=== PATIENT | male | born 1945 | race Caucasian/White ===

== ENCOUNTER 2017-01-13 09:33 | Inpatient (IN) | payer BC ==
[~2017-01-13 09:33] MED LIST: ACETAMINOPHEN 1,000 MG/100 ML BTL IV ONE; CELECOXIB 100 MG CAPSULE PO ONE; FAMOTIDINE 20MG TABLET PO ONE; MECLIZINE 25 MG TABLET PO ONE; METOCLOPRAMIDE 10 MG TABLET PO ONE; VANCOMYCIN HCL 1,000 MG in 0.9 % SODIUM CHLORIDE 250ML 250 ML IVPB ONE
[2017-01-13] MEDS ORDERED: VANCOMYCIN HCL 1 GM VIAL IVPB ONE (09:37)
[2017-01-13] MEDS ORDERED: BUPIVACAINE 0.5% W/EPI MPF 30 ML VIAL IVP ONE (09:37)
[2017-01-13] MEDS ORDERED: TRANEXAMIC ACID 1,000 MG/10 ML ML IV ONE (09:37)
[2017-01-13] MEDS ORDERED: BUPIVACAINE LIPOSOME 266MG/20ML VIAL IV ONE (09:37)
[2017-01-13 11:02] LABS: ABO GROUP B; ANTIBODY SCREEN NEGATIVE (NEGATIVE); RH TYPE POSITIVE
[2017-01-13] MEDS ORDERED: ONDANSETRON HCL IV 4 MG/2 ML VIAL IVP PRN (13:00)
[2017-01-13] MEDS ORDERED: MAGNESIUM HYDROXIDE 30 ML UDC PO PRN (13:00)
[2017-01-13] MEDS ORDERED: BISACODYL 10 MG SUPP RC PRN (13:00)
[2017-01-13] MEDS ORDERED: ACETAMINOPHEN 325 MG TAB PO PRN (13:00)
[2017-01-13] MEDS ORDERED: HYDROMORPHONE HCL 1MG/ML **SYRINGE IM PRN (13:00)
[2017-01-13] MEDS ORDERED: MORPHINE SULFATE 5 MG/ML PFS IVP PRN ×4 (13:00)
[2017-01-13] MEDS ORDERED: KETOROLAC 30 MG/ML VIAL IVP PRN ×2 (13:00)
[2017-01-13] MEDS ORDERED: PROMETHAZINE HCL 12.5 MG in 0.9 % SODIUM CHLORIDE 100ML 50 ML IVPB PRN (13:00)
[2017-01-13] MEDS ORDERED: ZOLPIDEM TARTRATE 5 MG TABLET PO PRN (13:00)
[2017-01-13] MEDS ORDERED: HYDROCODONE/APAP 7.5/325MG TABLET PO PRN ×2 (13:00)
[2017-01-13] MEDS ORDERED: ACETAMINOPHEN W/ CODEINE 300MG/60MG TABLET PO PRN ×2 (13:00)
[2017-01-13] MEDS ORDERED: ACETAMINOPHEN W/ CODEINE 300MG/30MG TABLET PO PRN ×2 (13:00)
[2017-01-13] MEDS ORDERED: HYDROMORPHONE HCL 2 MG/ML VIAL IM PRN (13:00)
[2017-01-13] MEDS ORDERED: METOCLOPRAMIDE HCL 10 MG/2 ML VIAL IVP PRN (13:00)
[2017-01-13] MEDS ORDERED: HYDROCODONE/APAP 5/325MG TABLET PO PRN ×2 (13:00)
[2017-01-13] MEDS ORDERED: NALOXONE 0.4 MG/1 ML VIAL IVP PRN (13:00)
[2017-01-13] MEDS ORDERED: DIPHENHYDRAMINE HCL 25 MG CAPSULE PO PRN (13:00)
[2017-01-13] MEDS ORDERED: TRAMADOL HCL 50 MG TABLET PO PRN ×2 (13:00)
[2017-01-13] MEDS ORDERED: AL HYDROX/MAG HYDROX 30ML UD PO PRN (13:00)
[2017-01-13] MEDS ORDERED: DEXTROSE 5 % AND 0.9 % NACL 1,000 ML IV PRN (15:00)
[2017-01-13] MEDS ORDERED: DIPHENHYDRAMINE HCL IV 50 MG/ML VIAL IVP ONE (15:53)
[2017-01-13] MEDS ORDERED: LIDOCAINE 2% MDV (20MG/ML) 20ML VIAL IV ONE (15:53)
[2017-01-13] MEDS ORDERED: FENTANYL PF 100MCG/2ML VIAL IV ONE (15:53)
[2017-01-13] MEDS ORDERED: PROPOFOL 10 MG/ML VIAL IV ONE (15:53)
[2017-01-13] MEDS ORDERED: HYDROMORPHONE HCL 2 MG/ML VIAL IV ONE (15:53)
[2017-01-13] MEDS ORDERED: KETOROLAC 30 MG/ML VIAL IVP ONE (15:53)
[2017-01-13] MEDS ORDERED: MIDAZOLAM HCL 2MG/2ML VIAL IV ONE (15:53)
[2017-01-13] MEDS ORDERED: FLU VAC QS 2017-18 (INPT, 6MO+) 60MCG/0.5ML IM ONE (17:21)
[2017-01-13] MEDS ORDERED: GLIMEPIRIDE 4 MG PO SCH (19:00)
[2017-01-13] MEDS ORDERED: METOPROLOL 50 MG PO SCH (22:00)
[2017-01-13] MEDS: FERROUS SULFATE 325 MG TAB PO SCH (22:19)
[2017-01-13] MEDS: DOCUSATE SODIUM 100 MG CAPSULE PO SCH (22:19)
[2017-01-13] MEDS: JANUMET PO SCH (22:19)
[2017-01-14] MEDS: VANCOMYCIN HCL 1,000 MG in 0.9 % SODIUM CHLORIDE 250ML 250 ML IVPB SCH ×2 (00:13→11:05)
[2017-01-14 06:39] LABS: HEMATOCRIT 39.3 % (42.0-52.0); HEMOGLOBIN 13.6 gm/dl (14.0-18.0)
--- NOTE | 2017-01-14 09:47 | Rehab Evaluation ---
Patient Information - Patient Information Diagnosis: Right knee OA Ordered Treatment: PT Evaluate and Treat Status: Initial Evaluation Surgery: Yes (TKA right ) Date of Surgery: 01/13/17 Past Medical/Surgical Hx: PAST MEDICAL/SURGICAL HISTORY Past Surgical History back sx testicle sx ulcer-portion of stomach 1/3 removed 1972; colonoscopies x3; cysto with removal of kidney stone (stent) skin CA removed from left forehead. PMH - Respiratory Hx Respiratory Disorders Yes Hx Chronic Obstructive Yes: "slight" Pulmonary Disease (COPD) Hx Pneumonia Yes: x2 Hx of URI Yes: had sinus infection with URI-took ABX- almost 100% over it Hx of SOB Yes: exertional Comment: sinus drainage in am PMH - Cardiovascular Hx Cardiovascular Disorders Yes Hx Edema Yes: slight in both legs/ankles Hx Hypertension Yes: med good control Hx Vascular Disease Yes: "leaky valve in rt leg" -DX 2 yrs ago"I have a cool rt foot" Exercise Tolerance Fair Comment: hyperlipidemia PMH - Neuro Hx Neurological Disorders Yes Hx Dementia Yes: a little Hx Neuropathy Yes: feet & hands Hx Weakness Yes: both knees PMH - GI Hx Gastrointestinal Disorders Yes Hx Ulcer Yes: 1/3 stomach removed Hx Weight Loss/Weight Gain Yes: loss of 20# over last yr PMH - Hx Genitourinary Disorders Yes Hx Kidney Stones Yes Comment: stomach surgery 1972 PMH - Endocrine Hx Endocrine Disorders Yes Hx Diabetes Yes Hx Thyroid Disease No Hx of NIDDM Yes Comment: does accucheck 2xday-this AM was 153. gets low at nite(60). 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 Removed cryocuff and bandage had leaked through with blood so notified nursing then checked patient's ROM and doing quite well with that and very little swelling in knee. Nursing removed IV and patient able to move supine to sit to stand with only CGA and walker. Able to stand actually without walker also as putting very little pressure through UE for weightbearing. Ambulated into dillon about 50 feet then able to descend three steps with walker folded and rail, pivoted around and able to ascend three steps with proper technique and walker and rail again for support. Walked back to room and had patient use bathroom: able to urinate standing without difficulty, washed hands easily then back to sit on edge of bed. Did not go through all exercises yet as nursing waiting to change bandages on knee and put new RELL hose on patient. Left tray table and call light close.) Subjective Information - Subjective Information Per Patient Objective Data - Pain Pain Present: Yes Pain Intensity: 2 - Mental Status Patient Orientation: Oriented x3 - Visual Perception Appears within normal limits for therapeutic activities - ROM Within normal limits (except right knee 0 to 60 degrees today.) - Strength/Tone Within normal limits (except quads probably 3+/5 yet secondary to surgery) - Coordination Appears within normal limits for therapeutic activities - Bed Mobility Independent - Transfers Independent - Balance Balance Sitting: Good Balance Standing: Good - Sensation Intact - Gait Detail (Able to walker with FWW without any difficulty and barely puts any pressure on walker with UES.) - Special Tests No Therapy Assessment - Therapy Assessment Detail (Patient doing extremely well and should progress well for rehab.) Patient Education - Patient Education Teaching Topic: Equipment Use, Exercise/Activity Response: Return Demonstration Teaching Method: Discussion, Demonstration Teaching Recipient: Patient Barriers To Learning: None Problem List - Problem List Physical Therapy Problem List: Detail (Some issues with mobility, gait and function yet especially for community distances of gait.) Goals - Goals Physical Therapy Goals: Independent with gait, mobility and functional activities safe to go home. Prognosis - Prognosis Good (Doing extremely well already and should be able to go home this afternoon or evening.) Plan - Plan Physical Therapy Plan: Continue PT today another time then has an appointment scheduled for tomorrow am if needs it. Increase mobility, review exercises and make sure ready for discharge home.
[2017-01-14] MEDS ORDERED: PATIENT OWN MED: GABAPENTIN 300 MG PO SCH (10:00)
[2017-01-14] MEDS ORDERED: LOSARTAN HCTZ PO SCH (10:00)
[2017-01-14] MEDS ORDERED: PATIENT OWN MED: LOVASTATIN 40 MG PO SCH (10:00)
[2017-01-14] MEDS ORDERED: RIVAROXABAN 10 MG TABLET PO SCH (10:00)
[2017-01-14] MEDS ORDERED: CELECOXIB 100 MG CAPSULE PO SCH (10:00)
[2017-01-14] MEDS ORDERED: VANCOMYCIN HCL 1 GM VIAL IVPB ONE (10:34)
[2017-01-14] MEDS ORDERED: TRANEXAMIC ACID 1,000 MG/10 ML ML IV ONE (10:34)
[2017-01-14] MEDS: DOCUSATE SODIUM 100 MG CAPSULE PO SCH (10:41)
[2017-01-14] MEDS: FERROUS SULFATE 325 MG TAB PO SCH (10:41)
[2017-01-14] MEDS: JANUMET PO SCH (10:44)
--- NOTE | 2017-01-14 14:08 | Physical Therapy Tx Note ---
Physical Therapy Tx Note - Treatment Note Tolerated: Good (Patient still doing very well with pain control and up several times today to bathroom without increased pain. Able to walk with FWW with good technique and tolerance.) Total Time Spent With Patient: 30 Physical Therapy Tx Note: Detail (Patient seen bedside, sitting up in bed with right leg dangling without pain. Removed cryocuff and compressive stocking then sit to stand with FWW, patient independent. Ambulated with FWW about 100 feet in dillon then back to bed. Climbed in bed independently then worked on exercises : heel slides, SLR, SAQ, ankle pumps and isometrics for quads and gluts, hamstrings. Re-attached cryocuff and answered questions for home.) Physical Therapy Problem List: Detail (Some issues with mobility, gait and function yet especially for community distances of gait.) Physical Therapy Goals: Independent with gait, mobility and functional activities safe to go home. Prognosis: Good (Patient doing very well and safe to go home as long as family present and uses walker: a little bit wobbly without walker yet.) Physical Therapy Plan: Continue PT today another time then has an appointment scheduled for tomorrow am if needs it. Increase mobility, review exercises and make sure ready for discharge home.
--- NOTE | 2017-01-14 14:09 | Rehab Evaluation ---
Patient Information - Patient Information Diagnosis: Right knee OA Ordered Treatment: OT Evaluate and Treat Status: Initial Evaluation Surgery: Yes (TKA right ) Date of Surgery: 01/13/17 Past Medical/Surgical Hx: PAST MEDICAL/SURGICAL HISTORY Past Surgical History back sx testicle sx ulcer-portion of stomach 1/3 removed 1972; colonoscopies x3; cysto with removal of kidney stone (stent) skin CA removed from left forehead. PMH - Respiratory Hx Respiratory Disorders Yes Hx Chronic Obstructive Yes: "slight" Pulmonary Disease (COPD) Hx Pneumonia Yes: x2 Hx of URI Yes: had sinus infection with URI-took ABX- almost 100% over it Hx of SOB Yes: exertional Comment: sinus drainage in am PMH - Cardiovascular Hx Cardiovascular Disorders Yes Hx Edema Yes: slight in both legs/ankles Hx Hypertension Yes: med good control Hx Vascular Disease Yes: "leaky valve in rt leg" -DX 2 yrs ago"I have a cool rt foot" Exercise Tolerance Fair Comment: hyperlipidemia PMH - Neuro Hx Neurological Disorders Yes Hx Dementia Yes: a little Hx Neuropathy Yes: feet & hands Hx Weakness Yes: both knees PMH - GI Hx Gastrointestinal Disorders Yes Hx Ulcer Yes: 1/3 stomach removed Hx Weight Loss/Weight Gain Yes: loss of 20# over last yr PMH - Hx Genitourinary Disorders Yes Hx Kidney Stones Yes Comment: stomach surgery 1972 PMH - Endocrine Hx Endocrine Disorders Yes Hx Diabetes Yes Hx Thyroid Disease No Hx of NIDDM Yes Comment: does accucheck 2xday-this AM was 153. gets low at nite(60). 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 He has 3-4 steps at the entrance with handrailing, a tub/shower combination as well as a walk in shower with grab bar and shower seat. He has an elevated toilet seat with grab bar. He is responsible for yard work, his family is responsible for home mgmt, meal prep and laundry. He has a 2 wheeled walker, scooter, cane and crutches.) Social History: Detail (Supportive family) Precautions: [place], Fall - Time With Patient Total Time Spent With Patient (Min): 30 Treatment Procedures: Detail (OT eval low complexity) Subjective Information - Subjective Information Per Patient Objective Data - Pain Pain Present: No - Mental Status Patient Orientation: Oriented x3 - Visual Perception Appears within normal limits for therapeutic activities - ROM Within normal limits (Aj UE AROM WNL) - Strength/Tone Within normal limits (Aj UE strength WNL) - Coordination Appears within normal limits for therapeutic activities - Bed Mobility Independent (Ind with supine to/from sit) - Transfers Independent - Balance Balance Sitting: Good Balance Standing: Good - Sensation Intact - ADL's/IADL's Detail (Pt educated re: modified dressing technique and he was able to demonstrate Ind with donning sweatpants, t-shirt and slippers. Reviewed shower safety and pt verbalized understanding.) Therapy Assessment - Therapy Assessment Detail (Pt is safe and Ind with modified dressing techniques.) Problem List - Problem List Physical Therapy Problem List: Detail (Some issues with mobility, gait and function yet especially for community distances of gait.) Occupational Therapy Problem List: Detail (No current OT problems identified.) Goals - Goals Physical Therapy Goals: Independent with gait, mobility and functional activities safe to go home. Occupational Therapy Goals: No current OT goals identified. Prognosis - Prognosis Good Plan - Plan Physical Therapy Plan: Continue PT today another time then has an appointment scheduled for tomorrow am if needs it. Increase mobility, review exercises and make sure ready for discharge home. Occupational Therapy Plan: No further IP OT needs identified. Thank you for this referral.
--- NOTE | 2017-01-15 13:30 | Operative Note ---
DATE OF SURGERY: 01/13/2017 PREOPERATIVE DIAGNOSIS: End-stage right knee arthrosis. POSTOPERATIVE DIAGNOSIS: End-stage right knee arthrosis. OPERATION: Right total knee arthroplasty. Surgeon: Reinaldo Max MD Anesthesia: Spinal. COMPLICATIONS: None. Anesthesia Provider: EDWARD Long Blood Loss: Minimal. TOURNIQUET TIME: 75 minutes. OPERATIVE FINDINGS: [id number] medial compartment arthrosis. COMPONENTS PLACED: Two g vancomycin-cemented [employer] Journey II Oxinium size 7 femoral component, size 7 tibial baseplate and 9 mm thick tibial poly insert and 35 mm cemented patellar component. INDICATIONS FOR OPERATION: This is a 71-year-old male who has had persistent pain and dysfunction in his knee for several years. Failed nonoperative treatment. Scheduled for a knee replacement. I explained the risks and benefits of surgery in detail for the diagnosis and procedures, including, but not limited to infection, nerve injury, vessel injury, persistent pain symptoms, tingling in the knee, periprosthetic fracture, need for resection arthroplasty should components get infected or loosen, injury to vessels or blood clot, and need for anticoagulation to prevent blood clots, risks associated with the medication, and all of his questions were clearly answered, course was outlined and he agreed to proceed. PROCEDURE: The patient brought to the OR, placed in the supine position, prepped for surgery. After this, spinal anesthesia was induced. The right lower extremity and knee prepped and draped in sterile fashion. Prepped the right knee again with ChloraPrep and draped and intraoperative timeout was performed. Next, the leg was exsanguinated with Esmarch. The knee was flexed and tourniquet inflated to 250 mmHg pressure. Next, skin and subcutaneous tissues dissected down, incised the capsule medially along the medial border of the patella to the tibial tubercle. Incised the vastus medialis in line with its fibers, in a mid vastus approach. Partially resected the right patellar fat pad, and elevated the capsule subperiosteal medially and flexed. The knee had [id number] medial compartment arthrosis. Next, drilled an intercondylar drill hole, inserted intramedullary guide veronica, 6 degree cutting block, aligned distal femoral condyles and pinned in the +2 mm position and cut the distal femoral condyles. Next, we placed a sizing jig on the distal femoral condyle, sized to be a size 7. Through the previously-placed pin holes, placed the size 7 cutting jig dialed in the anterior cut so it would come out flush without notching, and we cut the anterior cut, and it was a good cut. Next, we placed a size cutting jig, then we crosspinned and completed fixation, cut the remainder of the chamfer cuts in usual fashion. Next, we placed the size 7 trial component, centered it, pinned it, removed osteophytes off the periphery, and then inserted the femoral resection Angela and reamed out with box osteotome, cruciate bone block. Next, attention was turned to the tibia. We seated the spikes with the external alignment jig in the tubercle groove, 2 fingerbreadths distally off the anterior tibial cortex. Then, referencing for a 7 mm cut off the higher lateral plateau there, we pinned the cutting jig provisionally and placed 2 anterior/posterior pins. Next, checked the cutting jig alignment using the drop veronica, again, centering on the tibial anatomic access. Once we had good alignment, then we crosspinned the cutting jig, completing its fixation and cut the tibia. Next, we removed osteophytes of posterior femoral condyles, checked flexion and extension gaps. Symmetric flexion and extension gaps were fine with a 9 mm thick poly insert and extension, and with alignment rods centered on the hip joint and ankle joint, there was normal anatomic valgus orientation. Next, we took the knee in flexion and sized the tibial baseplate to a size 7 and placed all trial components. Again, set the rotation tibial base plate again in extension using the alignment rods centered on the hip joint and ankle joint, marked electrocautery adams on the anterior tibial cortex off the laser adams on the tibial baseplate. Next, we measured patella to be 25 mm, set the cutting jig at 16 mm to allow for a 9 mm thick insert. We cut the patella. Chamfered off lateral patellar facet as much as possible, remeasured right on 16, sized to be 35 mm medialized as much as possible and drilled 3 peg holes. Placed trial patellar component and then did a trial range of motion and we mixed cement. Patella tracked nicely with full extension and flexion to 140-150 degrees, and again, symmetrical flexion-extension gaps were found. Next, we put the knee in flexion, seated the tibial baseplate off he previously-placed electrocautery adams, pinned it in place, then reamed out and keel punched a keel hole, placed a bone plug in femoral canal hole. Next, we irrigated copiously all bone inserts with pulse lavage and antibiotic solution. Brought in clean sheet, changed gloves, and then back on the tibial component first, removing excess cement, and then the femoral component and removed excess cement, then placed the trial tibial polyliner and held the knee in extension until the cement hardened, then clamped down the patellar component. Once the cement hardened, we put the knee in flexion, removed the trial tibial component, distracted with knee bone hook and sponge, thoroughly debrided all excess cement around the edges of the components. We irrigated copiously. We then injected several needle sticks of a mixture of 0.5% Marcaine with epi, 2 grams tranexamicacid, and Exparel throughout the posterior and medial capsule, medial and lateral periosteum, vastus medialis, and subcutaneous area around the periphery. Next, then inserted the real tibial poly insert and verified it was interlocked medially and laterally, Final range of motion and stability were the same. Irrigated copiously. Closed the vastus medialis and capsule with running #2 Quill, irrigated again, and closed the skin deep with 2-0 Vicryl and reapproximated the skin edges with zip line. We then placed sterile dressing and Aquacel. The patient tolerated the procedure well. No intraoperative complications. Sponge and needle counts correct. To recovery room stable. Will be discharged to the floor and likely discharged in 1-2 days. BRANDON
== END 2017-01-14 15:44 | disposition home or self-care (01) | DRG 470 ==
LOC: MEDSURG 09:33
PROVIDERS: ADMIT Orthopaedic Surgery; ATTEND Orthopaedic Surgery
PROC: 0SRC069 Replacement of Right Knee Joint with Oxidized Zirconium on Polyethylene Synthetic Substitute, Cemented, Open Approach (ICD-10-PCS; principal; 2017-01-13 12:00)
DX: M17.11 Unilateral primary osteoarthritis, right knee (principal); E11.9 Type 2 diabetes mellitus without complications; F17.200 Nicotine dependence, unspecified, uncomplicated; E78.00 Pure hypercholesterolemia, unspecified; I10 Essential (primary) hypertension; J44.9 Chronic obstructive pulmonary disease, unspecified
CPT/HCPCS: 36416; 82948; 85014; 85018; 86850; 86900; 86901; 90686; 94761; 97110; 97116; 97165; J1200; J1885; J7050

== ENCOUNTER 2018-07-27 09:49 | Day surgery (SDC) | payer BC ==
[~2018-07-27 09:49] MED LIST changes: +ACETAMINOPHEN 325 MG TAB PO PRN; +ACETAMINOPHEN W/ CODEINE 300MG/30MG TABLET PO PRN; +ACETAMINOPHEN W/ CODEINE 300MG/60MG TABLET PO PRN; +AL HYDROX/MAG HYDROX 30ML UD PO PRN; +BISACODYL 10 MG SUPP RC PRN; +CEFAZOLIN 2 Gram 2 GM/50 ML BAG IVPB ONE; +DIPHENHYDRAMINE HCL 25 MG CAPSULE PO PRN; +HYDROCODONE/APAP 5/325MG TABLET PO PRN; +HYDROCODONE/APAP 7.5/325MG TABLET PO PRN; +HYDROMORPHONE HCL 2 MG/ML VIAL IM PRN; +KETOROLAC 30 MG/ML VIAL IVP PRN; +MAGNESIUM HYDROXIDE 30 ML UDC PO PRN; +METOCLOPRAMIDE HCL 10 MG/2 ML VIAL IVP PRN; +NALOXONE 0.4 MG/1 ML VIAL IVP PRN; +ONDANSETRON HCL IV 4 MG/2 ML VIAL IVP PRN; +PROMETHAZINE HCL 12.5 MG in 0.9 % SODIUM CHLORIDE 100ML 50 ML IVPB PRN; +TRAMADOL HCL 50 MG TABLET PO PRN; -VANCOMYCIN HCL 1,000 MG in 0.9 % SODIUM CHLORIDE 250ML 250 ML IVPB ONE; +VANCOMYCIN HCL 1,000 MG in DEXTROSE 5 % IN WATER 250 ML IVPB ONE; +ZOLPIDEM TARTRATE 5 MG TABLET PO PRN
[2018-07-27] MEDS ORDERED: LIDOCAINE 2% MDV (20MG/ML) 20ML VIAL IV ONE (09:50)
[2018-07-27] MEDS ORDERED: VANCOMYCIN HCL 1 GM VIAL IVPB ONE ×2 (09:50)
[2018-07-27] MEDS ORDERED: TRANEXAMIC ACID 1,000 MG/10 ML ML IV ONE ×2 (09:50)
[2018-07-27] MEDS ORDERED: PROPOFOL 10 MG/ML VIAL IV ONE (09:50)
[2018-07-27] MEDS ORDERED: MIDAZOLAM HCL 2MG/2ML VIAL IV ONE (09:50)
[2018-07-27] MEDS ORDERED: BUPIVACAINE 0.5% W/EPI MPF 30 ML VIAL IVP ONE (09:50)
[2018-07-27] MEDS ORDERED: BUPIVACAINE LIPOSOME 266MG/20ML VIAL IV ONE (09:50)
[2018-07-27 10:43] LABS: ABO GROUP B; ANTIBODY SCREEN NEGATIVE (NEGATIVE); RH TYPE POSITIVE
[2018-07-27] MEDS ORDERED: BUPIVACAINE 0.5% W/EPI MPF 30 ML VIAL SQ ONE (15:37)
[2018-07-27] MEDS ORDERED: BUPIVACAINE LIPOSOME 266MG/20ML VIAL SQ ONE (15:37)
[2018-07-27] MEDS ORDERED: DEXTROSE 5 % AND 0.9 % NACL 1,000 ML IV PRN (17:00)
[2018-07-27] MEDS: DOCUSATE SODIUM 100 MG CAPSULE PO SCH ×2 (18:08→21:33)
[2018-07-27] MEDS: HYDROCODONE/APAP 5/325MG TABLET PO PRN (18:08)
[2018-07-27] MEDS: FERROUS SULFATE 325 MG TAB PO SCH ×2 (18:08→21:33)
[2018-07-27] MEDS: LATANOPROST OPTH OPTH SCH (18:20)
[2018-07-27] MEDS: PATIENT OWN MED: METOPROLOL SUCCINATE 50 MG PO SCH ×2 (18:35→21:38)
[2018-07-27] MEDS: PATIENT OWN MED: AMLODIPINE 10 MG PO SCH (18:40)
[2018-07-27] MEDS: GLIMEPIRIDE 4 MG PO SCH (21:36)
[2018-07-27] MEDS: JANUMET PO SCH (21:36)
[2018-07-27] MEDS: PATIENT OWN MED: GABAPENTIN 300 MG PO SCH (21:36)
[2018-07-27] MEDS ORDERED: PATIENT OWN MED: LOVASTATIN 40 MG PO SCH (22:00)
[2018-07-27] MEDS: VANCOMYCIN HCL 1,000 MG in DEXTROSE 5 % IN WATER 250 ML IVPB SCH ×2 (22:40)
[2018-07-28 06:22] LABS: HEMATOCRIT 34.5 % (42.0-52.0); HEMOGLOBIN 11.9 gm/dl (14.0-18.0)
--- NOTE | 2018-07-28 09:20 | Rehab Evaluation ---
Patient Information - Patient Information Diagnosis: L knee DJD Ordered Treatment: PT Evaluate and Treat Status: Initial Evaluation Surgery: Yes (L TKA) Date of Surgery: 07/27/18 Past Medical/Surgical Hx: PAST MEDICAL/SURGICAL HISTORY Past Surgical History RTKA 01-13-17 back sx testicle sx ulcer-portion of stomach /3 removed 1972; colonoscopies x3; cysto with removal of kidney stone (stent) skin CA removed from left forehead. PMH - Respiratory Hx Respiratory Disorders Yes Hx Chronic Obstructive Yes: "slight" Pulmonary Disease (COPD) Hx Pneumonia Yes: x2 Hx of SOB Yes: exertional Comment: sinus drainage in am PMH - Cardiovascular Hx Cardiovascular Disorders Yes Hx Edema Yes: slight in both legs/ankles Hx Hypertension Yes: HAS BEEN ADJUSTING HIS MEDS IMPROVING Hx Vascular Disease Yes: "leaky valve in rt leg" -DX 4 yrs ago"I have a cool rt foot" Exercise Tolerance Fair Comment: hyperlipidemia. [facility] PMH - Neuro Hx Neurological Disorders Yes Hx Dementia Yes: a little Hx Neuropathy Yes: feet & hands Hx Weakness Yes: both knees PMH - GI Hx Gastrointestinal Disorders Yes Hx Ulcer Yes: 1/3 stomach removed Hx Weight Loss/Weight Gain No: STABLE PMH - Hx Genitourinary Disorders Yes Hx Bladder Problem Yes: LEAKS AT TIMES Hx Kidney Stones Yes: HX OF Comment: stomach surgery 1972 PMH - Endocrine Hx Endocrine Disorders Yes Hx Diabetes Yes Hx Thyroid Disease No Hx of NIDDM Yes Hx of IDDM Yes: STARTED STARTING TO SHOW SOME IMPROVEMENT USUALLY AROUND 200 Comment: BLOOD SUGARS HAVE BEEN RUNNING HIGH STARTED INSULIN 1 MONTH AGO PMH - Musculoskeletal Hx Musculoskeletal Disorders Yes Hx Arthritis Yes: all over PMH - Psych Hx Psychiatric Problems No PMH - Hematology/Oncology Hx Hematology/Oncology Yes Disorders 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 The bathroom is equipped with: a walk in shower with a shower bench, grab bars and hand held shower and an elevated toilet with grab bars. The patient has a two wheeled walker and 3 canes,(one single point, one single point with wide base.) Precautions: [place], Fall, Other (WBAT on L LE.) - Time With Patient Treatment Procedures: Detail (Initial Evaluation, gait training) Subjective Information - Subjective Information Per Patient (The patient had complaints of L knee pain with movement " my leg is on fire" but did not rate his pain using 0-10 pain scale.) Objective Data - Mental Status Patient Orientation: Person, Place (The patient knew birthdate but not his age. The patient followed simple commands but expressed confusion at times ie: with TKA HEP.) - ROM Not within normal limits (The patient's L knee AROM was limited as to be expected following surgery. All other AROM is WNL.) - Strength/Tone Not within normal limits (The patient's L LE was not tested s/p surgery however was functional ie: patient was able to complete SLR. The patient's R LE strength was functional.) - Bed Mobility Independent (The patient was independent with supine to and from sit transfer.) - Transfers Independent (The patient was independent with sit to and from stand transfer with occasional verbal cues to push up from and reach back for surface.) - Balance Balance Sitting: Good Balance Standing: Fair (The patient had a posterior lean at times with sit to stand and ambulating down the stairs. The patient was able to correct posterior lean when cued verbal to lean forward.) - Gait Detail (The patient ambulated with front wheeled walker WBAT on the L LE a distance of 75 feet x 1 with supervision for safety only. The patient ambulated on 3 steps with use of folded walker and one railing with CG/supervision for safety using proper technique. The patient's was present for gait training and observed ambulation on stairs.) Therapy Assessment - Therapy Assessment Detail (The patient was independent with bed mobility and transfers and required supervision for safety with ambulation on levels and stairs and occasional cues to correct posterior lean during movement. The patient's was aware of supervision requirements. The patient has met all inpatient goals and is discharged from inpatient PT. Due to stable condition PT Evaluation complexity is rated as low.) Patient Education - Patient Education Teaching Topic: Exercise/Activity (The patient was independent with TKA HEP including: ankle pumps, supine heel slides, gluteal sets, quad sets, hamstring sets and SLR. The patient required verbal cueing to isolate hamstrings and quads and to maintain submaximal contraction. Patient's was present during HEP instruction.) Response: Return Demonstration Teaching Method: Demonstration, Handout Teaching Recipient: Patient, Family Barriers To Learning: Age Related, Cognitive/Verbal Problem List - Problem List Physical Therapy Problem List: Detail (1) Decreased L knee AROM and strength as to be expected s/p surgery.) Goals - Goals Physical Therapy Goals: All inpatient PT goals have been met. Prognosis - Prognosis Good Plan - Plan Physical Therapy Plan: The patient has met all inpatient PT goals and is discharged from inpatient PT. The patient is to continue with Home PT.
[2018-07-28] MEDS: FERROUS SULFATE 325 MG TAB PO SCH (09:40)
[2018-07-28] MEDS: DOCUSATE SODIUM 100 MG CAPSULE PO SCH (09:40)
[2018-07-28] MEDS: PATIENT OWN MED: AMLODIPINE 10 MG PO SCH (09:41)
[2018-07-28] MEDS: PATIENT OWN MED: GABAPENTIN 300 MG PO SCH (09:43)
[2018-07-28] MEDS: GLIMEPIRIDE 4 MG PO SCH (09:46)
[2018-07-28] MEDS: JANUMET PO SCH (09:49)
[2018-07-28] MEDS: LATANOPROST OPTH OPTH SCH (09:52)
[2018-07-28] MEDS ORDERED: RIVAROXABAN 10 MG TABLET PO SCH (10:00)
[2018-07-28] MEDS ORDERED: PATIENT OWN MED: HYDROCHLOROTHIAZIDE 25 MG PO SCH (10:00)
[2018-07-28] MEDS ORDERED: SPIRONOLACTONE 25 MG PO SCH (10:00)
[2018-07-28] MEDS ORDERED: TRESIBA INSULIN SC SCH (10:00)
[2018-07-28] MEDS ORDERED: CYANOCOBALAMIN PO SCH (10:00)
[2018-07-28] MEDS ORDERED: CELECOXIB 100 MG CAPSULE PO SCH (10:00)
[2018-07-28] MEDS ORDERED: PATIENT OWN MED: LOSARTAN 100 MG PO SCH (10:00)
--- NOTE | 2018-07-28 10:26 | Rehab Evaluation ---
Patient Information - Patient Information Diagnosis: L knee DJD Ordered Treatment: OT Evaluate and Treat Status: Initial Evaluation Surgery: Yes (L TKA) Date of Surgery: 07/27/18 Past Medical/Surgical Hx: PAST MEDICAL/SURGICAL HISTORY Past Surgical History RTKA 01-13-17 back sx testicle sx ulcer-portion of stomach /3 removed 1972; colonoscopies x3; cysto with removal of kidney stone (stent) skin CA removed from left forehead. PMH - Respiratory Hx Respiratory Disorders Yes Hx Chronic Obstructive Yes: "slight" Pulmonary Disease (COPD) Hx Pneumonia Yes: x2 Hx of SOB Yes: exertional Comment: sinus drainage in am PMH - Cardiovascular Hx Cardiovascular Disorders Yes Hx Edema Yes: slight in both legs/ankles Hx Hypertension Yes: HAS BEEN ADJUSTING HIS MEDS IMPROVING Hx Vascular Disease Yes: "leaky valve in rt leg" -DX 4 yrs ago"I have a cool rt foot" Exercise Tolerance Fair Comment: hyperlipidemia. [facility] PMH - Neuro Hx Neurological Disorders Yes Hx Dementia Yes: a little Hx Neuropathy Yes: feet & hands Hx Weakness Yes: both knees PMH - GI Hx Gastrointestinal Disorders Yes Hx Ulcer Yes: 1/3 stomach removed Hx Weight Loss/Weight Gain No: STABLE PMH - Hx Genitourinary Disorders Yes Hx Bladder Problem Yes: LEAKS AT TIMES Hx Kidney Stones Yes: HX OF Comment: stomach surgery 1972 PMH - Endocrine Hx Endocrine Disorders Yes Hx Diabetes Yes Hx Thyroid Disease No Hx of NIDDM Yes Hx of IDDM Yes: STARTED STARTING TO SHOW SOME IMPROVEMENT USUALLY AROUND 200 Comment: BLOOD SUGARS HAVE BEEN RUNNING HIGH STARTED INSULIN 1 MONTH AGO PMH - Musculoskeletal Hx Musculoskeletal Disorders Yes Hx Arthritis Yes: all over PMH - Psych Hx Psychiatric Problems No PMH - Hematology/Oncology Hx Hematology/Oncology Yes Disorders 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 The Pt had a past medical history of a R TKA 2 years prior as well as dementia.) Social History: Detail (The patient lives with spouse in a one story house with 3 steps at the enterance and one handrail on the L ascending the stairs. The bathroom is equipped with a walk in shower a shower bench, grab bars and hand held shower and an elevated toilet with grab bars. The patient has a two wheeled walker and 3 canes (one single point, one single point with wide base).) Precautions: Verg[place], Fall, Other (WBAT on L LE.) - Time With Patient Total Time Spent With Patient (Min): 18 Subjective Information - Subjective Information Per Patient (Spouse present for eval, reports she can assist as needed for ADLs at home.) Objective Data - Pain Pain Present: No - Mental Status Patient Orientation: Oriented x3 (Pt demos slight dementia - forgetfulness.) - Visual Perception Appears within normal limits for therapeutic activities - ROM Within normal limits - Strength/Tone Within normal limits - Coordination Appears within normal limits for therapeutic activities - Bed Mobility Independent (supine >< sit EOB) - Transfers Needs Assist (CGA for functional ambulation with FWW EOB >< standard toilet: v/ c for safe FWW use, compensatory technique (weight bearing thru arms during fxl amb.) and hand placement with sit-stand; Pt demos slight posteroir lean with light therapist correct during standing pant mgmt. Spouse educated on Pt deficits and verbalizes understanding/ability to assist upon DC home.) - Balance Balance Sitting: Good Balance Standing: Good (Slight posterior lean with dynamic standing balance, v/ c and light physical assist to correct.), Fair - Sensation Intact - ADL's/IADL's Detail (OT educated Pt and spouse on shower safety - sitting with GB vs. standing, and modified technique for LB dressing, Pt demos understanding with light MIN assist from spouse who verbalizes she will assist upon DC.) Therapy Assessment - Therapy Assessment Detail (Pt demos ability to complete ADLs with light MIN assist from spouse who reports she will assist at home as needed. Spouse educated on Pt's deficits and verbalizes ability to assist. Pt appears safe to return home with spouse upon medical stability.) Problem List - Problem List Physical Therapy Problem List: Detail (1) Decreased L knee AROM and strength as to be expected s/p surgery.) Occupational Therapy Problem List: Detail (No further inpatient OT needs/goals identified, [place] inpatient OT services.) Goals - Goals Physical Therapy Goals: All inpatient PT goals have been met. Occupational Therapy Goals: No further inpatient OT needs/goals identified, [place] inpatient OT services. Plan - Plan Physical Therapy Plan: The patient has met all inpatient PT goals and is discharged from inpatient PT. The patient is to continue with Home PT. Occupational Therapy Plan: No further inpatient OT needs/goals identified, [place] inpatient OT services. Thank you for this referral.
[2018-07-28] MEDS: VANCOMYCIN HCL 1,000 MG in DEXTROSE 5 % IN WATER 250 ML IVPB SCH ×4 (11:30→12:00)
[2018-07-28] MEDS: HYDROCODONE/APAP 5/325MG TABLET PO PRN (12:28)
--- NOTE | 2018-07-28 20:18 | Operative Note ---
DATE OF SURGERY: 07/27/2018 PREOPERATIVE DIAGNOSIS: END-STAGE LEFT KNEE ARTHROSIS. POSTOPERATIVE DIAGNOSIS: END-STAGE LEFT KNEE ARTHROSIS. PROCEDURE: LEFT TOTAL KNEE ARTHROPLASTY. SURGEON: ROCIO SYLVESTER M.D. ANESTHESIA: SPINAL, GENERAL. UBALDO CASTILLO CRNA COMPLICATIONS: NONE. BLOOD LOSS: MINIMAL. TOURNIQUET TIME: APPROXIMATELY 60 MINUTES. OPERATIVE FINDINGS: Severe mgcq-nr-[id number] arthrosis. COMPONENTS PLACED: 2 gm Vancomycin, cemented [employer] II Oxinium total knee arthroplasty system size 7 femoral component, size 7 tibial baseplate , a 9 mm thick tibial poly insert, and a 35 mm cemented patellar component. INDICATIONS FOR OPERATION: This is a 73-year-old male who is well known myself. He is status post right knee arthroplasty done a few months ago and now is scheduled for the left. I explained the risks and benefits thoroughly in detail for the diagnosis and procedures including but not limited to infection, nerve injury, vessel injury, persistent pain, stiffness, numbness and tingling in his knee, periprosthetic fracture, need for resection arthroplasty should the components become infected or loosened, blood clot, need for anticoagulation to prevent blood clots and the risks associated with these medications and all of his questions were answered. Rehab and course were outlined and he agreed to proceed. PROCEDURE: The patient was brought into the O.R. and placed in the supine position prior to surgery. General tracheal anesthesia was induced after a spinal anesthesia was induced and his left lower extremity and knee were prepped and draped in sterile fashion. The left knee was prepped again with ChloraPrep after it was draped. Intraoperative time-out was performed. The knee was injected with 0.5% Marcaine with Epinephrine. A standard anterior approach was performed to the knee. The leg was exsanguinated with an Esmarch. The knee was flexed and the tourniquet inflated to 215 mmHg pressure. Next, the skin and subcutaneous tissues were dissected down. Medial and lateral skin flaps were made. We incised the capsule medially around the medial border of the of the patella to the tibial tubercle. We incised the vastus medialis in line with its fibers in a mid vastus approach. We partially resected the retropatellar fat pad and everted the patella. We elevated the capsule subperiosteally and medially and resected the anterior horn of the meniscus. Next, we drilled an intercondylar drill hole and inserted the intramedullary guide veronica with 6 degree cutting block. We aligned off the distal femoral condyles. We pinned it in +2 mm position. He had severe zoce-av-bjss arthrosis throughout all three compartments. Next, we placed the sizing jig on the distal femur and sized it to be be right on size 7. Through the pre-placed pinholes, we placed the 5-in-1 cutting jig. We dialed in the anterior cut so it would come out flush without notching. We cut that cut and it was a good flush cut. We cut the remainder of the chamfer cuts in the usual fashion. Next, we placed the size 7 trial femoral component. We centered it, pinned it, removed osteophytes off the periphery, and then inserted the resection collet and reamed out and box-osteotomed out with a cruciate bone block. Next, attention was turned to the tibia. We placed the the extra-alignment jig. We seated the spikes in the intertubercular groove two fingerbreadths distally off the central third of the tibial tubercle and referenced for a 7 mm cut off the higher lateral plateau. We pinned the cutting jig provisionally with two anterior and posterior pins. Next, we rechecked the alignment of the cutting jig using a drop veronica centered on the tibial anatomic axis, cross-pinned it completing its fixation and cut the tibia. Next, we removed osteophytes from the posterior femoral condyle. We checked flexion and extension gaps. We basically had symmetric flexion and extension gaps we found with a 9 mm thick poly insert. There was 2 to 3 mm of varus/ valgus laxity in flexion and extension. Overall alignment in extension was in anatomic valgus orientation with the alignment veronica centered on the hip joint and ankle joint. Next, we took the knee into flexion. We sized the tibial baseplate to be a size 7. We replaced all trial components. We set the rotation again in extension with the alignment veronica centered on the hip joint and ankle joint. We marked with electrocautery adams off the laser adams on the tibial baseplate with the alignment veronica centered on the hip joint and ankle joint. Next, attention was turned to the patella. We measured the patella to be 25 mm. We set the cutting jig to 16 mm to allow for a 9 mm thick poly insert and cut the patella. We chamfered off the lateral patellar facet and measured it to be 35. We medialized as much as possible and drilled three peg holes. We placed the trial patella component, mixed cement, and did a trial range of motion. The patella tracked nicely hands-free. He had full extension and flexion to 140 to 150 degrees. He had symmetric flexion and extension gaps. Next, we took the knee in flexion. We seated the tibial baseplate off the previously placed electrocautery adams, pinned it in place and drilled out and keel-punched the keel hole. Next, we changed gloves and brought in clean sheets. We copiously irrigated with pulse lavage and antibiotic solution and pre-coated both surfaces. We impacted down the tibial component first, removing excess cement. We placed a bone plug in the femoral canal hole and impacted down the femoral component. WE placed the trial tibial poly liner and clamped down the patella component. We held the knee in extension until the cement hardened. Once the cement hardened, we then took the knee into flexion and distracted the knee with bone hook and sponge. We removed excess cement around the edges of the components. We irrigated copiously. We then injected our 0.5% Marcaine with Epinephrine, tranexamic acid, and Exparel mixture in the deep capsule mediolateral working out peripherally to the periosteum and out superficially to the vastus medialis. Next, we inserted the real tibial poly inserted and verified it was interlocked medial and lateral. Final range of motion revealed the same. We irrigated and closed in flexion using a running #2 STRATAFIX suture. We irrigated again and closed the skin deep with #2-0 Vicryl and injected again subcutaneous with 0.5% Marcaine with Epinephrine and Exparel mixture. A sterile dressing was applied and DELTA wrap. He tolerated the procedure well, no intraoperative complications. Sponge, needle , and blade counts were correct. Recovery Room stable, neurovascularly intact. He will be discharged likely tomorrow and follow-up in two weeks. cc: Primary Care Physician JOB NUMBER: [id number] MTDD
== END 2018-07-28 13:25 | disposition home health service (06) ==
LOC: SUR 09:49 → MEDSURG 16:51 → SUR 07-28 13:25
PROVIDERS: ATTEND Orthopaedic Surgery
DX: M17.11 Unilateral primary osteoarthritis, right knee (principal); I10 Essential (primary) hypertension; E11.9 Type 2 diabetes mellitus without complications; Z79.4 Long term (current) use of insulin; E78.00 Pure hypercholesterolemia, unspecified; H40.9 Unspecified glaucoma; Z79.01 Long term (current) use of anticoagulants; J44.9 Chronic obstructive pulmonary disease, unspecified
CPT/HCPCS: 36416; 76942; 82948; 85014; 85018; 86850; 86900; 86901; 94760; J1885; J7060